=== PATIENT | female | born 1960 | race Caucasian/White ===

== ENCOUNTER → 2016-12-17 | Outpatient (CLI) | payer BC ==
[~2016-12-17] MED LIST: ADVIL PM 38 MG-1 TAB PO; CIPRO 500MG TA500 MG PO; DEPO-PROVER150 MG/M1 IM; DIFLUCAN PO; FLOMAX 0.40.4 MG/CAP PO; FOLIC ACID PO; LORTAB 5/500 501 TAB PO; PERCOCET 325 MG1 TA2 PO; PERCOCET 5/321 UDTAB PO; POLY IRON; VITAMIN C250250 MG PO; ZOFRAN 4MG T4 MG/TAB PO
== END ==
LOC: MC.RAD 11:20
DX: Z12.31 Encounter for screening mammogram for malignant neoplasm of breast (principal); M62.9 Disorder of muscle, unspecified

== ENCOUNTER → 2017-01-02 | Outpatient (CLI) | payer BC | LOC: MC.RAD 12-24 14:00 | DX: R92.8 Other abnormal and inconclusive findings on diagnostic imaging of breast (principal) ==

== ENCOUNTER → 2018-05-26 | Outpatient (CLI) | payer BC ==
[2018-05-26 13:35] LABS: BASO % 0.3 % (0.0-2.0); EOS # 0.1 (0.0-0.7); EOS % 0.9 % (0-4.0); GRAN # 6.5 (1.4-6.5); GRAN % 74.3 % (42.2-75.2); HEMATOCRIT 39.6 % (37.0-47.0); HEMOGLOBIN 13.2 g/dl (12.5-16.0); LYMPH # 1.4 (1.2-3.4); LYMPH % 16.3 % (20.0-51.0); MEAN CELL VOLUME 87 fl (80.0-100.0); MEAN CORPUSCULAR HEMOGLOBIN 29 pg (27.0-31.0); MEAN CORPUSCULAR HGB CONC 33 g/dl (33.0-37.0); MEAN PLATELET VOLUME 9.4 fl (7.4-10.4); MONO # 0.7 (0.1-0.6); MONO % 8.1 % (1.7-9.3); PLATELET COUNT 281 K/mm3 (130-400); RED BLOOD COUNT 4.54 M/mm3 (4.10-5.30); REDCELL DISTRIBUTION WIDTH-CV 13.1 % (11.5-14.5)
[2018-05-26 13:51] LABS: ALBUMIN 3.7 gm/dL (3.5-5.0); BILIRUBIN,TOTAL 0.5 mg/dL (0.0-1.0); C-REACTIVE PROTEIN 1.4 mg/dL (0.0-0.9); CALCIUM 9.1 mg/dL (8.4-10.2); CREATININE, serum 0.65 mg/dL (0.52-1.25); TOTAL PROTEIN 7.2 gm/dL (6.4-8.2)
[2018-05-26 13:59] LABS: ERYTHROCYTE SEDIMENTATION RATE 20 mm/hr (0-30)
== END ==
LOC: COL.RAD 12:54
PROVIDERS: Internal Medicine
DX: K63.89 Other specified diseases of intestine (principal); N20.0 Calculus of kidney; Z98.84 Bariatric surgery status

== ENCOUNTER → 2018-05-29 | Outpatient (CLI) | payer BC ==
[2018-05-29 10:39] LABS: CALCIUM 9.3 mg/dL (8.4-10.2); CREATININE, serum 0.66 mg/dL (0.52-1.25); POTASSIUM 3.9 mmol/L (3.4-5.0)
== END ==
LOC: COL.LAB 10:00
PROVIDERS: Internal Medicine
DX: R52 Pain, unspecified (principal)

== ENCOUNTER 2018-06-25 09:11 | Emergency (ER) | payer BC ==
[~2018-06-25] VITALS: Ht 157.5 cm; Wt 90.0 kg
[2018-06-25 09:20] VITALS: BP 126/72; TEMP 98.1
[2018-06-25] MEDS ORDERED: HCTZ 25MG TAB25 MG PO (09:25)
[2018-06-25] MEDS ORDERED: LEXAPRO 5MG5 MG PO (09:26)
[2018-06-25] MEDS ORDERED: DESYREL 50MG50 MG PO (09:26)
[2018-06-25 10:20] LABS: BASO % 0.4 % (0.0-2.0); EOS # 0.1 (0.0-0.7); EOS % 1.1 % (0-4.0); GRAN # 3.9 (1.4-6.5); GRAN % 68.8 % (42.2-75.2); HEMATOCRIT 35.6 % (37.0-47.0); HEMOGLOBIN 11.6 g/dl (12.5-16.0); LYMPH # 1.1 (1.2-3.4); MEAN CELL VOLUME 87 fl (80.0-100.0); MEAN CORPUSCULAR HEMOGLOBIN 28 pg (27.0-31.0); MEAN CORPUSCULAR HGB CONC 33 g/dl (33.0-37.0); MEAN PLATELET VOLUME 10.1 fl (7.4-10.4); MONO # 0.5 (0.1-0.6); MONO % 9.3 % (1.7-9.3); PLATELET COUNT 225 K/mm3 (130-400); RED BLOOD COUNT 4.08 M/mm3 (4.10-5.30); REDCELL DISTRIBUTION WIDTH-CV 13.1 % (11.5-14.5)
[2018-06-25 10:34] LABS: ALBUMIN 3.1 gm/dL (3.5-5.0); BILIRUBIN,TOTAL 0.4 mg/dL (0.0-1.0); CALCIUM 8.4 mg/dL (8.4-10.2); CREATININE, serum 0.55 mg/dL (0.52-1.25); POTASSIUM 3.5 mmol/L (3.4-5.0); TOTAL PROTEIN 6.2 gm/dL (6.4-8.2)
[2018-06-25 10:36] LABS: C-REACTIVE PROTEIN 0.5 mg/dL (0.0-0.9)
[2018-06-25 11:46] LABS: COLLECTION METHOD CLEAN CATCH
[2018-06-25 12:08] LABS: MUCOUS Present /lpf; URINE BACTERIA None Seen /hpf
[2018-06-25 12:09] LABS: PH 5 (5-8); URINE APPEARANCE Clear; URINE COLOR Yellow
[2018-06-25 12:10] LABS: URINE BILIRUBIN Negative (NEGATIVE); URINE BLOOD Negative (NEGATIVE); URINE GLUCOSE Negative (NEGATIVE); URINE KETONE Negative (NEGATIVE); URINE LEUKOCYTE ESTERASE Negative (NEGATIVE); URINE NITRATE Negative (NEGATIVE); URINE PROTEIN(semi-quant) 1+ (NEGATIVE); URINE UROBILINOGEN Negative (NEGATIVE)
[2018-06-25] MEDS ORDERED: PRILOSEC 20MG20 MG PO (13:00)
[2018-06-25] MEDS ORDERED: ULTRAM 50MG TAB50 MG PO (13:11)
[2018-06-25 13:41] VITALS: PULSE 81
== END 2018-06-25 13:41 | disposition home or self-care (01) ==
LOC: COL.ER 09:11
PROVIDERS: Physician Assistant
DX: R10.13 Epigastric pain (principal); I10 Essential (primary) hypertension; Z87.442 Personal history of urinary calculi; Z87.891 Personal history of nicotine dependence; Z98.890 Other specified postprocedural states
CPT/HCPCS: J1170; J2405; J7030

== ENCOUNTER 2018-06-26 14:31 | Day surgery (SDC) | payer BC ==
[~2018-06-26] VITALS: Ht 157.5 cm; Wt 97.2 kg
[~2018-06-26 14:31] MED LIST changes: +DESYREL 50MG50 MG PO; +HCTZ 25MG TAB25 MG PO; +LEXAPRO 5MG5 MG PO; +PRILOSEC 20MG20 MG PO; +ULTRAM 50MG TAB50 MG PO
[2018-06-26 15:03] VITALS: BP 133/73; PULSE 68; TEMP 99
[2018-06-26 16:05] VITALS: BP 124/64; PULSE 70; TEMP 98
[2018-06-26 16:20] VITALS: BP 129/64; PULSE 69
== END 2018-06-26 16:51 | disposition home or self-care (01) ==
LOC: SDCO 14:31
DX: K44.9 Diaphragmatic hernia without obstruction or gangrene (principal); K31.89 Other diseases of stomach and duodenum; D50.9 Iron deficiency anemia, unspecified; Z88.6 Allergy status to analgesic agent
CPT/HCPCS: OP; J2250; J3010; J7030

== ENCOUNTER 2018-09-23 06:37 | Emergency (ER) | payer BC ==
[~2018-09-23] VITALS: Ht 157.5 cm; Wt 138.6 kg
[2018-09-23 06:50] VITALS: TEMP 97.9
[2018-09-23 07:11] LABS: BASO % 0.4 % (0.0-2.0); EOS # 0.1 (0.0-0.7); EOS % 1.5 % (0-4.0); GRAN # 3.7 (1.4-6.5); GRAN % 67.9 % (42.2-75.2); HEMOGLOBIN 12.8 g/dl (12.5-16.0); LYMPH # 1.1 (1.2-3.4); LYMPH % 20.4 % (20.0-51.0); MEAN CELL VOLUME 87 fl (80.0-100.0); MEAN CORPUSCULAR HEMOGLOBIN 29 pg (27.0-31.0); MEAN CORPUSCULAR HGB CONC 33 g/dl (33.0-37.0); MEAN PLATELET VOLUME 9.9 fl (7.4-10.4); MONO # 0.5 (0.1-0.6); MONO % 9.6 % (1.7-9.3); PLATELET COUNT 272 K/mm3 (130-400); RED BLOOD COUNT 4.47 M/mm3 (4.10-5.30); REDCELL DISTRIBUTION WIDTH-CV 12.6 % (11.5-14.5)
[2018-09-23 07:22] LABS: ALBUMIN 3.6 gm/dL (3.5-5.0); BILIRUBIN,TOTAL 0.3 mg/dL (0.0-1.0); CALCIUM 8.6 mg/dL (8.4-10.2); CREATININE, serum 0.68 mg/dL (0.52-1.25); POTASSIUM 3.6 mmol/L (3.4-5.0); TOTAL PROTEIN 6.9 gm/dL (6.4-8.2)
[2018-09-23 08:28] LABS: COLLECTION METHOD CLEAN CATCH
[2018-09-23 08:36] LABS: PH 7 (5-8); SQUAMOUS EPITHELIAL None Seen /hpf; URINE APPEARANCE Clear; URINE BACTERIA None Seen /hpf; URINE BILIRUBIN Negative (NEGATIVE); URINE BLOOD Negative (NEGATIVE); URINE COLOR Yellow; URINE GLUCOSE Negative (NEGATIVE); URINE KETONE Negative (NEGATIVE); URINE LEUKOCYTE ESTERASE Negative (NEGATIVE); URINE NITRATE Negative (NEGATIVE); URINE PROTEIN(semi-quant) Negative (NEGATIVE); URINE RBC 0-2 /hpf; URINE UROBILINOGEN Negative (NEGATIVE)
[2018-09-23 09:01] VITALS: BP 169/95; PULSE 84
== END 2018-09-23 09:00 | disposition home or self-care (01) ==
LOC: COL.ER 06:37
PROVIDERS: Emergency Medicine
DX: R10.84 Generalized abdominal pain (principal); I10 Essential (primary) hypertension
CPT/HCPCS: J1170; J1630; J2550; J7030; Q9967